=== PATIENT | female | born 1990 | race Caucasian/White ===

== ENCOUNTER → 2020-04-19 14:09 | Outpatient (CLI) | payer OTHER, SELFPAY | PROVIDERS: Visit Provider Specialist | DX: Z34.83 Encounter for supervision of other normal pregnancy, third trimester (principal); Z3A.31 31 weeks gestation of pregnancy | CPT/HCPCS: 87086 ==

== ENCOUNTER → 2020-05-30 12:25 | Outpatient (CLI) | payer OTHER, SELFPAY ==
[2020-05-31 12:56] LABS: Strep Grp B PCR NEG for Grp B Strep
== END ==
PROVIDERS: Visit Provider Specialist
DX: Z34.03 Encounter for supervision of normal first pregnancy, third trimester (principal); Z3A.37 37 weeks gestation of pregnancy
CPT/HCPCS: 87653

== ENCOUNTER 2020-05-31 21:56 | Emergency (ER) | payer OTHER, SELFPAY ==
[2020-05-31 22:10] VITALS: BP 138/63; PULSE 97; RESP 16; TEMP 36.6; O2SAT 98; BMI 29.8
--- NOTE | 2020-05-31 22:15 | DI.US.S_ITS ---
PROCEDURE: US PERIPH VENOUS LOW EXTREM RT INDICATIONS: EDEMA TECHNIQUE: Real-time imaging, as well as color and pulse Doppler interrogation, were performed of the lower extremity deep veins from the inguinal ligament to the popliteal fossa. COMPARISON: None. FINDINGS: The common femoral, femoral and popliteal veins are normally compressible, and free of intraluminal thrombus. Color and pulse Doppler demonstrate normal phasic intraluminal flow. There is normal augmentation response to distal compression maneuver. IMPRESSION: No evidence of DVT in visualized right lower extremity veins. Dictated by: Celso He M.D. on 06/01/2020 at 8:08 Approved by: Celso He M.D. on 06/01/2020 at 8:08
--- NOTE | 2020-05-31 22:52 | ED_ITS ---
HPI - Extremity Problem General Chief complaint: Extremity Problem,Nontraumatic Stated complaint: check dvt in leg Time Seen by Provider: 05/31/20 22:15 Source: patient Mode of arrival: Ambulatory Limitations: no limitations History of Present Illness HPI Narrative: Patient is a 30-year-old female. His in her 3rd trimester of her 2nd . Is not having any vaginal bleeding or abdominal pain or loss of fluid. Her earlier in the day she started noticing pain and swelling on the outside of her right lower leg. Symptoms were not improving so she contacted the nurse advice line and told her to come to the emergency department because of potential DVT. Related Data Home Medications Medication Instructions Recorded Confirmed omeprazole 20 mg capsule,delayed 20 mg PO DAILY 04/16/20 04/19/20 release ondansetron HCl 4 mg tablet 4 mg PO Q8H 04/16/20 04/19/20 polyethylene glycol 3350 17 17 g PO DAILY 04/16/20 04/19/20 gram/dose oral powder prenat.vits,kaela,[id number] 1 tab PO DAILY 04/16/20 04/19/20 wheat dextrin 3 gram/3.5 gram oral 1 packet PO DAILY 04/16/20 04/19/20 powder packet Allergies Allergy/AdvReac Type Severity Reaction Status Date / Time No Known Drug Allergies Allergy Verified 04/16/20 11:04 Review of Systems Constitutional Constitutional: Denies fever(s) Cardiovascular Cardiovascular: Denies chest pain and Denies dyspnea Respiratory Respiratory: Denies dyspnea Gastrointestinal Gastrointestinal: Denies abdominal pain and Denies nausea Genitourinary Genitourinary: Denies vaginal discharge Musculoskeletal Comments: Pain and swelling outside of right lower leg Integumentary/Breasts Skin/Breast: Denies rash Neurologic Neurologic: Denies behavioral changes Psychiatric Psychiatric: Denies behavioral changes Hematologic/Lymphatic Hematologic/Lymphatic: Denies easy bleeding and Denies easy bruising Patient History Medical History Chicken pox (~1996) Constipation (~2016) GERD (gastroesophageal reflux disease) (~2016) Seasonal allergies (~1997) Sinus infection (~1997) Surgical History (Updated 04/29/20 @ 21:32 by Vita Coleman) Anesthesia History of tonsillectomy and adenoidectomy (~2001) [place] teeth extracted Family History (Updated 04/29/20 @ 21:33 by Vita Coleman) Mother Family history unknown Father Family history unknown Grandmother COPD (chronic obstructive pulmonary disease) Smoker Mental health problem Grandfather Myocardial infarction Hypertension Hyperlipidemia Grandmother Family history unknown Grandfather No problems noted. Social History marital status: number of children: 1 household members: spouse and children lives independently: Yes caregiver/support person: No housing: house pets and animals: Yes (1 dog, very safe.) education level: college (Some college, stopped when deployed to [employer].) occupational status: unemployed ([employer] current occupational exposures/hazards: No micaela/orthodox: Gnosticism special micaela needs: No seatbelt use: always Smoking Status: Never smoker second hand exposure: No alcohol intake: never substance use type: does not use during the past year weight has: remained stable well-balanced diet: daily or most days daily servings fruits/ve or more times/day Type(s) of exercise: walking and normal ROM and 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, 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 Course Orders Ordered: ED Orders 05/31/20 22:15 US periph venous low extrem rt Stat Vital Signs Vital signs: Vital Signs - 8 hr 05/31/20 22:10 05/31/20 22:56 Temperature 97.9 F Pulse Rate 97 H 80 Respiratory Rate 16 16 Blood Pressure 138/63 113/73 Pulse Oximetry 98 99 MDM - Extremity (Nontraumatic) Imaging Data US - DVT: Radiologist's Impression: No DVT he has had fine MDM Narrative Medical decision making narrative: Patient is not having any / rela javon symptoms. Tenderness to palpation is on the outside of the right lower extremity. I suspect this is musculoskeletal. Ultrasound shows no signs of a DVT. On further workup for now. She was given return precautions follow up instructions. She expressed understanding and agreement. Discharge Plan Departure Patient Disposition: Home Clinical Impression: Muscle spasm Instructions: Muscle Strain Activity Restrictions/Additional Instructions: Keep all of your scheduled appointments with regard to your OB care. You have no restrictions on your activities. Return to the emergency department for any new or worsening symptoms Prescriptions: No Action omeprazole 20 mg capsule,delayed release(DR/EC) 20 mg PO DAILY RF: 0 ondansetron HCl [Zofran] 4 mg tablet 4 mg PO Q8H RF: 0 polyethylene glycol 3350 [Miralax] 17 gram/dose powder 17 g PO DAILY RF: 0 Benefiber Clear SF (dextrin) 3 gram/3.5 gram powder in packet 1 packet PO DAILY RF: 0 prenat.vits,kaela,[id number] Tablet 1 tab PO DAILY RF: 0 Referrals: Miscellaneous,Doctor, MD [Primary Care Provider] -
[2020-05-31 22:56] VITALS: BP 113/73; PULSE 80; RESP 16; O2SAT 99
== END 2020-05-31 22:57 | disposition home or self-care (01) ==
PROVIDERS: Emergency Provider Emergency Medicine
DX: M62.831 Muscle spasm of calf (principal)
CPT/HCPCS: 93971; 99283

== ENCOUNTER 2022-04-30 20:45 | Emergency (ER) | payer OTHER, SELFPAY ==
[2022-04-30 20:50] VITALS: BP 150/84; PULSE 111; RESP 16; TEMP 36.9; O2SAT 100; BMI 24.2
[2022-04-30 21:40] LABS: Add Manual Diff / Slide Review NO; Basophils Absolute Auto 0 /uL (0-100); Basophils Percent Auto 0.4 % (0-2); Eosinophils Absolute Auto 200 /uL (0-450); Eosinophils Percent Auto 1.7 % (2-4); Hematocrit 40.2 % (36-46); Hemoglobin 13.2 g/dL (12.0-16.0); Lymphocytes Absolute Auto 2700 /uL (1100-4500); Lymphocytes Percent Auto 28.8 % (25-40); Mean Corpuscular HGB Conc 32.8 % (30-36); Mean Corpuscular Hemoglobin 26.8 PG (26-34); Mean Corpuscular Volume 81.8 fL (80-100); Monocytes Absolute Auto 600 /uL (0-900); Neutrophils Absolute Auto 5900 /uL (1500-7000); Neutrophils Percent Auto 63.1 % (50-75); Platelet Count 298 X10^3/uL (150-400); Red Blood Cell Count 4.91 X10^6/uL (4.0-5.2); Red Cell Distribution Width 13.4 % (11.6-14.8); White Blood Cell Count 9.3 X10^3/uL (4.5-11.0)
[2022-04-30 21:44] LABS: Alanine Aminotransferase 27 IU/L (<35); Albumin 4.9 g/dL (3.5-5.0); Albumin Globulin Ratio 1.8 (1.0-2.8); Alkaline Phosphatase 55 U/L (38-126); Aspartate Aminotransferase 20 IU/L (14-36); BUN Creatinine Ratio 21.7 (6-22); Bilirubin Total 0.4 mg/dL (0.2-1.3); Blood Urea Nitrogen 13 mg/dL (7-17); Calcium 9.1 mg/dL (8.4-10.2); Carbon Dioxide 26 mmol/L (22-32); Chloride 104 mmol/L (98-107); Estimated Glomerular Filt Rate > 60 mL/min (>60); Globulin 2.8 g/dL (1.7-4.1); Glucose 106 mg/dL (70-100); HEMOLYSIS < 15 (0-50); Potassium 3.9 mmol/L (3.4-5.1); Sodium 139 mmol/L (137-145); Total Protein 7.7 g/dL (6.3-8.2)
[2022-04-30 22:23] LABS: TSH w/ Reflex to FT4 2.18 uIU/mL (0.47-4.68)
[2022-05-01 00:45] VITALS: BP 117/77; PULSE 102; RESP 16; O2SAT 99
--- NOTE | 2022-05-01 01:18 | PC.NURSE ---
pt states she feels palpitations sometimes but today was the first time she felt short of breath.
[2022-05-01 01:19] VITALS: PULSE 88; RESP 21; O2SAT 99
[2022-05-01 01:30] VITALS: PULSE 90; RESP 17; O2SAT 100
--- NOTE | 2022-05-01 01:32 | ED_ITS ---
HPI - Arrhythmia/Palpitations General Chief Complaint: Arrhythmia/Palpitations Stated Complaint: palpitations, cough, difficulty breathing Time Seen by Provider: 04/30/22 23:16 Source: patient Mode of arrival: Ambulatory History of Present Illness HPI narrative: 31-year-old otherwise healthy woman presents with palpitations. She notes that over the years she is had an occasional palpitation that has particularly bothered her. Last week she had an episode where it was particularly noticeable but limited to approximately 10 minutes. Over the course of the week she is had an occasional palpitation but day she had an episode where it was significant enough that she was dizzy, lightheaded short of breath and lasted approximately 30 minutes. Resolved and then around 7:00 p.m. had a similar episode lasting approximately 15 minutes. She noted that her heart rate was in the 100 range and somewhat irregular. She does not describe any recent viral illnesses, no current fever, chills cough chest pain, dyspnea, orthopnea, lower extremity edema. She is not noticing any headaches. Related Data Home Medications Medication Instructions Recorded Confirmed omeprazole 20 mg capsule,delayed 20 mg PO DAILY 04/16/20 05/11/21 release polyethylene glycol 3350 17 17 g PO DAILY 04/16/20 05/11/21 gram/dose oral powder (Miralax) prenat.vits,kaela,[id number] 1 tab PO DAILY 04/16/20 05/11/21 wheat dextrin 3 gram/3.5 gram oral 1 packet PO DAILY 04/16/20 05/11/21 powder packet (Benefiber Clear Sugar Free(dextrin)) Previous Rx's Medication Instructions Recorded metoprolol tartrate 25 mg tablet 12.5 mg PO BID #30 tabs 05/01/22 Allergies Allergy/AdvReac Type Severity Reaction Status Date / Time No Known Drug Allergies Allergy Verified 05/11/21 09:12 Review of Systems Review of Systems Narrative: Remainder of complete review of systems is otherwise unremarkable except for that included in the HPI. Patient History Medical History Chicken pox (~1996) Constipation (~2016) GERD (gastroesophageal reflux disease) (~2016) Seasonal allergies (~1997) Sinus infection (~1997) Surgical History Anesthesia History of tonsillectomy and adenoidectomy (~2001) [place] teeth extracted Family History Mother Family history unknown Father Family history unknown Grandmother COPD (chronic obstructive pulmonary disease) Smoker Mental health problem Grandfather Myocardial infarction Hypertension Hyperlipidemia Grandmother Family history unknown Grandfather No problems noted. Social History marital status: number of children: 1 household members: spouse and children lives independently: Yes caregiver/support person: No housing: house pets and animals: Yes (1 dog, very safe.) education level: college (Some college, stopped when deployed to [employer] occupational status: unemployed ([employer] current occupational exposures/hazards: No micaela/anabaptist: Shinto special micaela needs: No seatbelt use: always Smoking Status: Never smoker second hand exposure: No alcohol intake: never substance use type: does not use during the past year weight has: remained stable well-balanced diet: daily or most days daily servings fruits/ve or more times/day Type(s) of exercise: walking and normal ROM and 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 Able to give a complete and coherent history. Well-nourished well-developed HEENT: Moist mucous membranes, normal sclera with reactive pupils, Neck: No JVD, supple Respiratory: Lungs are clear to auscultation, no wheezing no rales no rhonchi. Full and symmetrical air movement Cardiac: Regular rate and rhythm with occasional PAC no murmurs no bruits Abdomen: Soft, nontender, good bowel tones, no flank pain Skin: Warm and dry, no rashes Neurologic: Grossly neurologically intact with no obvious asymmetries or abnormalities Extremities: No trauma, well perfused, no lower extremity edema Psych: Cooperative, appropriate insight and affect Course Orders Ordered: ED Orders 04/30/22 21:26 CBC Auto Diff [Complete Blood Count AUTO DIFF] Stat CMP [Comprehensive Metabolic Panel] Stat TSH w/ Reflex to FT4 Stat 05/01/22 01:24 EKG-12 Lead Stat 05/01/22 01:40 DD [D Dimer] Stat Troponin & CK Cardiac Panel Stat 05/01/22 01:45 XR chest 1V Stat Discontinued Medications Metoprolol Tartrate (Metoprolol Ir 25 Mg Tablet) 12.5 mg PO NOW ONE Stop: 05/01/22 01:41 Last Admin: 05/01/22 01:46 Dose: 12.5 mg Vital Signs Vital signs: Vital Signs - 8 hr 04/30/22 20:50 05/01/22 00:45 Temperature 98.4 F Pulse Rate 111 H 102 H Respiratory Rate 16 16 Blood Pressure 150/84 H 117/77 Pulse Oximetry 100 99 Oxygen Delivery Method Room Air Room Air MDM - Arrhythmia/Palpitations Lab Data Result diagrams: 04/30/22 21:26 04/30/22 21:26 Labs: Lab Results 04/30/22 04/30/22 04/30/22 Range/Units 21:26 21:26 21:26 WBC 9.3 (4.5-11.0) X10^3/uL RBC 4.91 (4.0-5.2) X10^6/uL Hgb 13.2 (12.0-16.0) g/dL Hct 40.2 (36-46) % MCV 81.8 (80-100) fL MCH 26.8 (26-34) PG MCHC 32.8 (30-36) % RDW 13.4 (11.6-14.8) % Plt Count 298 (150-400) X10^3/uL Neut % (Auto) 63.1 (50-75) % Lymph % (Auto) 28.8 (25-40) % Liberty % (Auto) 6.0 (3-14) % Eos % (Auto) 1.7 L (2-4) % Baso % (Auto) 0.4 (0-2) % Neut # (Auto) 5900 (4680-5086) /uL Lymph # (Auto) 2700 (7370-4814) /uL Liberty # (Auto) 600 (0-900) /uL Eos # (Auto) 200 (0-450) /uL Baso # (Auto) 0 (0-100) /uL D-Dimer (<500) ng/ml Sodium 139 (137-145) mmol/L Potassium 3.9 (3.4-5.1) mmol/L Chloride 104 (98-107) mmol/L Carbon Dioxide 26 (22-32) mmol/L BUN 13 (7-17) mg/dL Creatinine 0.60 (0.52-1.04) mg/dL Estimated GFR > 60 (>60) mL/min BUN/Creatinine Ratio 21.7 (6-22) Glucose 106 H (70-100) mg/dL Calcium 9.1 (8.4-10.2) mg/dL Total Bilirubin 0.4 (0.2-1.3) mg/dL AST 20 (14-36) IU/L ALT 27 (<35) IU/L Alkaline Phosphatase 55 (38-126) U/L Total Creatine Kinase (30-135) U/L CK-MB (CK-2) CK-MB (CK-2) Rel Index Troponin I (0.01-0.034) ng/mL Total Protein 7.7 (6.3-8.2) g/dL Albumin 4.9 (3.5-5.0) g/dL Globulin 2.8 (1.7-4.1) g/dL Albumin/Globulin Ratio 1.8 (1.0-2.8) TSH 2.18 (0.47-4.68) uIU/mL 04/30/22 05/01/22 Range/Units 21:26 01:54 WBC (4.5-11.0) X10^3/uL RBC (4.0-5.2) X10^6/uL Hgb (12.0-16.0) g/dL Hct (36-46) % MCV (80-100) fL MCH (26-34) PG MCHC (30-36) % RDW (11.6-14.8) % Plt Count (150-400) X10^3/uL Neut % (Auto) (50-75) % Lymph % (Auto) (25-40) % Liberty % (Auto) (3-14) % Eos % (Auto) (2-4) % Baso % (Auto) (0-2) % Neut # (Auto) (8268-2459) /uL Lymph # (Auto) (1511-3792) /uL Liberty # (Auto) (0-900) /uL Eos # (Auto) (0-450) /uL Baso # (Auto) (0-100) /uL D-Dimer 243 (<500) ng/ml Sodium (137-145) mmol/L Potassium (3.4-5.1) mmol/L Chloride (98-107) mmol/L Carbon Dioxide (22-32) mmol/L BUN (7-17) mg/dL Creatinine (0.52-1.04) mg/dL Estimated GFR (>60) mL/min BUN/Creatinine Ratio (6-22) Glucose (70-100) mg/dL Calcium (8.4-10.2) mg/dL Total Bilirubin (0.2-1.3) mg/dL AST (14-36) IU/L ALT (<35) IU/L Alkaline Phosphatase (38-126) U/L Total Creatine Kinase 52 (30-135) U/L CK-MB (CK-2) TNP CK-MB (CK-2) Rel Index TNP Troponin I < 0.012 (0.01-0.034) ng/mL Total Protein (6.3-8.2) g/dL Albumin (3.5-5.0) g/dL Globulin (1.7-4.1) g/dL Albumin/Globulin Ratio (1.0-2.8) TSH (0.47-4.68) uIU/mL Imaging Data Chest x-ray: Radiologist's Impresson: FINDINGS:? ? Surgical changes and devices:? None.? ? Lungs and pleura:? Lungs are clear.? No pleural effusions or pneumothorax.? ? Mediastinum:? Mediastinal contours appear normal.? Heart size is normal.? ? Bones and chest wall:? No suspicious bony lesions.? Overlying soft tissues appear unremarkable.? ? IMPRESSION:? ? 1.? No acute cardiopulmonary disease. ? ? ? Dictated by: Bora Mills M.D. on 05/01/2022 at 2:25 ? ? ECG Data Interpretation: Sinus arrhythmia with PACs. No acute ischemic changes MDM Narrative Medical decision making narrative: 31-year-old woman presents complaining of palpitations. Clinical exam is benign. Telemetry shows mild tachycardia in the 100 range with fairly notable sinus arrhythmia but no additional abnormalities. EKG shows PACs only. There is no evidence of hyperthyroidism, significant anemia, dehydration, cardiac abnormalities, PE, cardiomyopathy or acute coronary syndrome. She was given 12.5 mg of oral metoprolol and her heart rate slowed nicely to a rate of 75 and has been significantly free of PACs after the dosing. I believe she simply is having symptomatic PACs without pathologic finding. All this is r eviewed with the patient. She is given a prescription for metoprolol to use 1.5 mg orally as needed if she is having symptomatic palpitations. We reviewed the importance of regular sleep patterns, maintaining circadian rhythms and avoiding significant amounts of stimulants. She understands and is safe for discharge home Discharge Plan Departure Patient Disposition: Home Clinical Impression: Sinus arrhythmia Instructions: DI for Arrhythmias Activity Restrictions/Additional Instructions: Thank you for coming in today You are having sinus arrhythmia with premature atrial contractions. This does explain the irregular heartbeat. This is not a rhythm that is associated with further complications, this is not atrial fibrillation and this is not a pathologic rhythm that will cause problems. It is a rhythm that can simply be annoying. At this point there is no evidence of heart injury, myocarditis, enlarged heart, pulmonary embolism, significant anemia, infection or electrolyte abnormalities. In the emergency department you were given 12.5 mg of oral metoprolol which nicely slowed down your heart rate and helped get rid of the sinus arrhythmia. It is okay to use this medication twice a day if you are having particularly symptomatic palpitations. I would encourage you to follow-up with your primary care doctor If you find that you are getting worse or develop any new symptoms, please feel free to return to the emergency department for further evaluation. Prescriptions: New metoprolol tartrate 25 mg tablet 12.5 mg PO BID Qty: 30 0RF No Action omeprazole 20 mg capsule,delayed release(DR/EC) 20 mg PO DAILY polyethylene glycol 3350 [Miralax] 17 gram/dose powder 17 g PO DAILY Benefiber Clear SF (dextrin) 3 gram/3.5 gram powder in packet 1 packet PO DAILY Rx Instructions: mix into at least 4 oz water or juice before administering prenat.vits,kaela,[id number] Tablet 1 tab PO DAILY Referrals: Provider,Cristina LEIGH [Primary Care Provider] -
--- NOTE | 2022-05-01 01:40 | PC.NURSE ---
Patient given call light to notify nursing staff when she has palpitation feeling.
--- NOTE | 2022-05-01 01:45 | DI.RAD.S_ITS ---
PROCEDURE: XR CHEST 1V INDICATIONS: Palpitations TECHNIQUE: One view of the chest was acquired. COMPARISON: None. FINDINGS: Surgical changes and devices: None. Lungs and pleura: Lungs are clear. No pleural effusions or pneumothorax. Mediastinum: Mediastinal contours appear normal. Heart size is normal. Bones and chest wall: No suspicious bony lesions. Overlying soft tissues appear unremarkable. IMPRESSION: 1. No acute cardiopulmonary disease. Dictated by: Bora Mills M.D. on 05/01/2022 at 2:25 Approved by: Bora Mills M.D. on 05/01/2022 at 2:25
[2022-05-01] MEDS: METOPROLOL IR 25 MG TABLET 12.5 MG PO (01:46)
[2022-05-01 01:57] LABS: Creatine Kinase 52 U/L (30-135)
[2022-05-01 02:00] VITALS: PULSE 80; RESP 23; O2SAT 98
[2022-05-01 02:08] LABS: D Dimer 243 ng/ml (<500)
[2022-05-01 02:10] LABS: Troponin I < 0.012 ng/mL (0.01-0.034)
[2022-05-01 02:30] VITALS: PULSE 77; RESP 18; O2SAT 96
[2022-05-01 02:54] VITALS: BP 110/62; PULSE 76; RESP 18; O2SAT 97
== END 2022-05-01 03:04 | disposition home or self-care (01) ==
PROVIDERS: Emergency Provider Emergency Medicine
DX: I49.8 Other specified cardiac arrhythmias (principal)
CPT/HCPCS: 71045; 80053; 82550; 84443; 84484; 85025; 85379; 93005; 99284

== ENCOUNTER 2023-05-03 14:18 | Day surgery (SDC) | payer OTHER, SELFPAY ==
--- NOTE | 2023-05-03 | PATH_ITS ---
[facility] Accession Number: [id number] No. of containers..02 Tissue . 01 Material submitted: . PART A: stomach - ANTRUM PART B: esophagus - MID ESOPHAGUS . 01 Diagnosis: A. Stomach, Antrum, Biopsy: Antral mucosa with no diagnostic abnormality. No evidence of Helicobacter organisms on H/E stain. Negative for intestinal metaplasia. Negative for dysplasia or malignancy. . B. Mid Esophagus, Biopsy: Squamous epithelium with no diagnostic abnormality. Intraepithelial eosinophils are not increased. Negative for dysplasia and malignancy. MRV 05/12/2023 1733 Local . 01 Electronically signed: . Jacquelin Pardo MD, Pathologist NPI- [id number] . 01 Gross description: . Part A: ANTRUM: Received in formalin are 2 fragment(s) of boogie, soft tissue measuring 0.1 x 0.1 x 0.1 cm to 0.2 x 0.2 x 0.2 cm submitted entirely in 1 cassette(s) Part B: MID ESOPHAGUS: Received in formalin is 1 fragment(s) of boogie, soft tissue measuring 0.1 x 0.1 x 0.1 cm submitted entirely in 1 cassette(s) /ZOE 05/04/2023 1908 Local . 01 Pathologist provided ICD-10: K59.00, R11.0 . 01 CPT . 658126, 292899 Specimen Comment: A courtesy copy of this report has been sent to [phone] Performed at: 01 [facility] [address] [place] [address], [place], [place] [id number] MD Bora Coyne MD Phone: [phone]
[2023-05-03] MEDS: LACTATED RINGERS 1,000 ML 42 ML IV (15:13)
[2023-05-03 15:22] VITALS: BP 115/76; PULSE 109; RESP 16; TEMP 36.2; O2SAT 100; BMI 25.0
--- NOTE | 2023-05-03 15:58 | P.HP_ITS ---
History of Present Illness History of Present Illness Date Patient Seen: 05/03/23 Time Patient Seen: 15:59 Chief complaint: EGD Narrative: I reviewed the recent office note. She has constipation and nausea. The reflux component is much improved on the omeprazole but nausea persists and comes on randomly. [facility] Medical History Chicken pox (~1996) Seasonal allergies (~1997) Sinus infection (~1997) Constipation (~2016) GERD (gastroesophageal reflux disease) (~2016) Surgical History Anesthesia [place] teeth extracted History of tonsillectomy and adenoidectomy (~2001) Family History Mother Family history unknown Father Family history unknown Grandmother COPD (chronic obstructive pulmonary disease) Smoker Mental health problem Grandfather Myocardial infarction Hypertension Hyperlipidemia Grandmother Family history unknown Grandfather No problems noted. Social History marital status: number of children: 1 household members: spouse and children lives independently: Yes caregiver/support person: No housing: house pets and animals: Yes (1 dog, very safe.) education level: college (Some college, stopped when deployed to [place].) occupational status: unemployed ([employer].) current occupational exposures/hazards: No micaela/christianity: Baptism special micaela needs: No seatbelt use: always Smoking Status: Never smoker second hand exposure: No alcohol intake: never substance use type: does not use during the past year weight has: remained stable well-balanced diet: daily or most days daily servings fruits/ve or more times/day Type(s) of exercise: walking and normal ROM and 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, 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.) frequency: 1-2 times per week duration: 30-45 minutes/day Meds Home Medications and Allergies Home Medications Medication Instructions Recorded Confirmed Type omeprazole 20 mg capsule,delayed 20 mg PO DAILY 04/16/20 05/03/23 History release wheat dextrin 3 gram/3.5 gram oral 1 packet PO DAILY 04/16/20 05/03/23 History powder packet (Benefiber Clear Sugar Free(dextrin)) metoprolol tartrate 25 mg tablet 12.5 mg (1/2 x 25 mg) PO BID #30 05/01/22 05/03/23 Rx tabs ondansetron 4 mg disintegrating 4 mg PO PRN PRN Nausea 05/03/23 05/03/23 History tablet Allergies Allergy/AdvReac Type Severity Reaction Status Date / Time No Known Drug Allergies Allergy Verified 05/03/23 15:19 Review of Systems Review of Systems ROS: Yes All systems reviewed with the patient and are negative except as otherwise documented Exam Vital Signs (past 8 hours): - 05/03/23 15:22 Temperature 97.2 F L Pulse Rate 109 H Respiratory Rate 16 Blood Pressure 115/76 Pulse Oximetry 100 Oxygen Delivery Method Room Air Oxygen Delivery Method Room Air Const General: cooperative HENMT Head: normal to inspection Eyes General: appearance normal, both eyes and all related structures Neck Neck: normal visual inspection Chest Chest: normal inspection of the chest Resp Effort & Inspection: normal respiratory effort Cardio Rate: regular rate GI Inspection: normal to inspection Skin General: no rashes or lesions noted Neuro General: patient alert and patient awake Extrem General: normal to inspection and no pedal edema Psych Appearance: grossly normal Assessment & Plan Assessment & Plan narrative: 32-year-old with intermittent nausea of uncertain etiology. Diagnostic EGD is pursued today.
--- NOTE | 2023-05-03 16:00 | PM.PREOP ---
Pre-operative Note Interval Note History & Physical reviewed/Exam performed by Physician: Yes Changes to H&P: No ASA Class (for procedural sedation): II
[2023-05-03 16:41] VITALS: BP 102/63; PULSE 105; RESP 16; TEMP 36.6; O2SAT 97
--- NOTE | 2023-05-03 16:45 | PM.OP.EGD ---
Operative Date/Time/Diagnoses Date of procedure: 05/03/23 Time of procedure: 16:45 Pre-op diagnosis: Nausea and GERD Post-op diagnosis: same Procedure & Clinicians Study performed: EGD with biopsies Same procedure as scheduled: Yes Indications: Nausea and GERD Surgeon: Curt Cazares Procedure Notes SCOAP/Timeout: Done Procedure in detail: After the risks and benefits were explained, written and verbal informed consent was obtained. The patient was brought into the procedure room and placed into the left lateral decubitus position. Please see anesthesia notes for sedation details. The scope was introduced into the mouth through the bite block and advanced under direct visualization to the 2nd portion of the duodenum. The scope was slowly withdrawn carefully examining the mucosa for any defects or lesions. Retroflexed views were accomplished in the stomach. The stomach was decompressed, the scope was then removed from the patient who tolerated the procedure well. Sedation minutes: 7 Complications: none Impression: 1. Duodenum: No significant mucosal pathology appreciated from the bulb through to the 2nd portion. 2. Stomach: Mild diffuse gastropathy was appreciated and antral biopsies were therefore acquired to exclude H pylori infection. I did not identify any evidence of outlet obstruction. No mass lesions. No ulceration. Retroflexed views of the LES were unremarkable. 3. Esophagus: The squamocolumnar junction correlated with the top of the gastric folds. GEJ was at about 38 cm from the incisors. No acute erosive changes no strictures no mass lesions. The lower esophageal sphincter mechanism was subjectively somewhat lax. I did note some tightly grouped circumferential folds in the mid esophagus. These were only intermittently visible. Nevertheless I decided to take some biopsies from mid esophagus to exclude eosinophilic infiltration. Endoscopic diagnosis 1. Mild gastropathy 2. Subjectively lax lower esophageal sphincter mechanism 3. Tightly grouped midesophageal circumferential folds - biopsied for exclusion of eosinophilic esophagitis. Post-procedure Plan for aftercare: 1. Await histology. 2. Continue anti-reflux therapy for now. 3. If Helicobacter is found it will need to be eradicated with standard triple therapy. 4. Continue with fiber manipulation to facilitate a more efficient easy to evacuate bowel. 5. Follow up GI clinic Disposition: PACU
[2023-05-03 16:46] VITALS: BP 104/63; PULSE 89; RESP 17; O2SAT 97
[2023-05-03 16:51] VITALS: BP 100/69; PULSE 83; RESP 18; O2SAT 98
[2023-05-03 16:56] VITALS: BP 107/71; PULSE 89; RESP 14; O2SAT 98
[2023-05-03 17:03] VITALS: BP 108/71; PULSE 79; RESP 15; TEMP 36.2; O2SAT 99
== END 2023-05-03 17:14 | disposition home or self-care (01) ==
PROVIDERS: Referring Provider Internal Medicine Gastroenterology; Visit Provider Internal Medicine Gastroenterology
PROC: 0DJ08ZZ Inspection of Upper Intestinal Tract, Via Natural or Artificial Opening Endoscopic (ICD-10-PCS; CPT 43235; principal; 2023-05-03 15:30)
DX: K21.9 Gastro-esophageal reflux disease without esophagitis (principal); R11.0 Nausea; K31.9 Disease of stomach and duodenum, unspecified; K22.89 Other specified disease of esophagus
CPT/HCPCS: 43239; 81025; J2704